=== PATIENT | female | born 1980 | race Two or more races ===

== ENCOUNTER 2020-11-01 17:20 | Emergency (ER) | payer MEDICAID, OTHER ==
[~2020-11-01] VITALS: Ht 157.5 cm; Wt 79.4 kg
[2020-11-01 18:28] LABS: Basophils # (auto) 0.1 10 ^3/uL (0-0.2); Eosinophils # (auto) 0.1 10 ^3/uL (0-0.8); Eosinophils % (auto) 0.9 % (0.0-7.0); Hematocrit 27.3 % (36.0-46.0); Lymphocytes # (auto) 2.3 10 ^3/uL (0.4-5.4); Monocytes # (auto) 0.7 10 ^3/uL (0-1.3)
[2020-11-01 18:30] LABS: Basophils % (auto) 1.2 % (0.0-2.0); Hemoglobin 8.3 g/dL (12.2-16.2); Lymphocytes % (auto) 28.4 % (10.0-50.0); Mean Corpuscular Hemoglobin 19.2 pg (28.0-32.0); Mean Corpuscular Hgb Conc. 30.4 g/dL (32.0-36.0); Mean Corpuscular Volume 63.2 fL (80.0-100.0); Monocytes % (auto) 8.5 % (0.0-12.0); Platelet Count (auto) 359 10^3/uL (140-450); Red Blood Cells 4.31 10^6/uL (4.0-5.20); Red Cell Distribution Width 18.7 % (11.8-14.3); White Blood Cell 8.3 10^3/uL (4.4-10.8)
[2020-11-01 18:34] LABS: Albumin 3.6 g/dL (3.4-5.0); Anion Gap 8 (5-15); Blood Urea Nitrogen 12 mg/dL (7-18); Calcium 8.6 mg/dL (8.5-10.1); Carbon Dioxide 23 mmol/L (21-32); Chloride 109 mmol/L (98-107); Glucose 75 mg/dL (74-106); Potassium 3.2 mmol/L (3.5-5.1); Sodium 140 mmol/L (136-145)
[2020-11-01 18:39] LABS: Alanine Aminotransferase 38 U/L (13-56); Alkaline Phosphatase 45 U/L (45-117); Aspartate Aminotransferase 42 U/L (15-37); BUN/Creatinine Ratio 16.2; Bilirubin, Total 0.3 mg/dL (0.2-1.0); GFR African American 113 mL/min; GFR Non-African American 93 mL/min; Total Protein 7.1 g/dL (6.4-8.2)
[2020-11-01 18:42] LABS: Urine Bacteria FEW /hpf (None Seen); Urine Blood Negative /uL (Negative); Urine Specific Gravity 1.003 (1.001-1.035); Urine WBC 4 /hpf (0 - 5)
[2020-11-01] MEDS ORDERED: POTASSIUM CHL 20 Meq TABLET PO ONE (19:00)
[2020-11-01 19:19] VITALS: BP 117/78
== END 2020-11-01 19:26 | disposition home or self-care (01) ==
LOC: EDBD 17:20 → ER 17:20 → EDSEX 17:20 → ER 19:26
DX: I47.1 Supraventricular tachycardia (principal); E87.6 Hypokalemia; N39.0 Urinary tract infection, site not specified; R00.2 Palpitations; J45.909 Unspecified asthma, uncomplicated; Z98.51 Tubal ligation status
CPT/HCPCS: 36415; 80053; 81001; 84484; 85025; 93005